=== PATIENT | female | born 1980 | race Hispanic/Latino ===

== ENCOUNTER 2021-11-20 03:15 | Observation (INO) | payer SELFPAY ==
[2021-11-20] MEDS ORDERED: Lactated Ringer's 1,000 ML IV SCH (05:15)
[2021-11-20] MEDS ORDERED: Clindamycin/D5W 600 MG in Premix Bag 1 BAG IVPB SCH (06:00)
[2021-11-20] MEDS ORDERED: Morphine 4 MG/ML VIAL SLOW IVP PRN (06:04)
[2021-11-20 06:06] VITALS: BMI 46.0
[2021-11-20] MEDS ORDERED: Ondansetron ODT 4 MG TAB SL PRN (06:15)
[2021-11-20] MEDS ORDERED: Ondansetron PF 4 MG/2 ML Vial IVP PRN (06:15)
[2021-11-20] MEDS ORDERED: Lidocaine 1% w/Epinephrine 1:100K 20 ML VIAL NERVE BLCK SCH (08:00)
[2021-11-20 08:44] VITALS: BP 101/70; TEMP 97.4
== END 2021-11-20 11:45 | disposition home or self-care (01) ==
LOC: ERS 03:15 → T4-A 04:06
PROVIDERS: ADMIT Family Medicine; ATTEND Family Medicine
DX: J36 Peritonsillar abscess (principal); B95.0 Streptococcus, group A, as the cause of diseases classified elsewhere; F17.210 Nicotine dependence, cigarettes, uncomplicated
CPT/HCPCS: 96375; G0378; J3490; J7120